=== PATIENT | female | born 1970 | race Caucasian/White ===

== ENCOUNTER 2021-12-28 19:04 | Inpatient (IN) | payer BC, OTHER ==
[~2021-12-28] VITALS: Ht 157.5 cm; Wt 70.3 kg
[2021-12-28 12:00] VITALS: BP_SYST 124
[2021-12-28 19:21] VITALS: BP_SYST 129
[2021-12-28 22:02] LABS: MEAN CORPUSCULAR VOLUME 99 fL (79.0-98.0)
[2021-12-28 22:11] LABS: POTASSIUM 4.8 mmol/L (3.5-5.1)
[2021-12-28] MEDS ORDERED: HALOPERIDOL LACTATE 5 MG/ML VIAL IM ONE (22:15)
[2021-12-28] MEDS ORDERED: DIPHENHYDRAMINE INJ 50 MG/ML VIAL IM ONE (22:15)
[2021-12-28] MEDS ORDERED: LORazepam 2 MG/ML VIAL IM ONE (22:15)
[2021-12-28 22:48] LABS: HEMATOCRIT 47.8 % (36-48); MEAN CORPUSCULAR HEMOGLOBIN 31 pg (27-31); MEAN CORPUSCULAR HGB CONC 31 % (32-36); PLATELET COUNT (AUTO) 78 K/uL (130-430); RED BLOOD CELL COUNT(AUTO) 4.85 MIL/uL (4.2-6.2); RED CELL DISTRIBUTION WIDTH 14.1 % (9.0-15.0); WHITE BLOOD COUNT (AUTO) 18.2 K/uL (4.8-10.8)
[2021-12-28 22:56] LABS: BILIRUBIN,URINE NEGATIVE (NEGATIVE); BLOOD, URINE NEGATIVE (NEGATIVE); CLARITY/URINE CLEAR (CLEAR); COLOR,URINE YELLOW (YELLOW); GLUCOSE,URINE NEGATIVE (NEGATIVE); KETONES,URINE TRACE (NEGATIVE); LEUKOCYTE ESTERASE ,URINE NEGATIVE (NEGATIVE); NITRITE, URINE NEGATIVE (NEGATIVE); PROTEIN URINE 2+ (NEGATIVE); UROBILINOGEN,URINE 0.2 (0.2-1.0)
[2021-12-28] MEDS ORDERED: cefTRIAXone 1 GM IVPB PREMIX 50 ML IV ONE (23:00)
[2021-12-28] MEDS ORDERED: NACL 0.9% 2,000 ML IV ONE (23:00)
[2021-12-28 23:12] LABS: BARBITURATE, URINE NEGATIVE (NEG <=200); BENZODIAZEPINE, URINE NEGATIVE (NEG <=150); CANNABINOID, URINE POSITIVE (NEG <=50); COCAINE, URINE NEGATIVE (NEG <=150); METHAMPHETAMINES SCREEN,URINE NEGATIVE (NEG <=500); OPIATE, URINE NEGATIVE (NEG <=100); PHENCYCLIDINE SCREEN,URINE NEGATIVE (NEG <=25); UR TRICYCLIC ANTIDEPRESSANTS NEGATIVE (NEG <=300); URINE AMPHETAMINE NEGATIVE (NEG <=500); URINE METHADONE NEGATIVE (NEG <=200); URINE OXYCODONE SCREEN NEGATIVE (NEG <=100); URINE PROPOXYPHENE SCREEN NEGATIVE (NEG <=300)
[2021-12-28 23:21] LABS: BACTERIA,URINE MANY /HPF (None Seen); FINE GRANULAR CASTS,URINE 0-10 /LPF (None Seen); RBC,URINE 0-3 /HPF (0-3); URINE AMORPHOUS URATE 2+ /HPF (None Seen); WBC,URINE 0-3 /HPF (0-3)
[2021-12-29] VITALS (21 sets, daily range): BP systolic 72–142
[2021-12-29 00:06] LABS: ALBUMIN 4.4 g/dL (3.4-4.8); CALCIUM 9.1 mg/dL (8.4-11.0); CREATININE 2.27 mg/dL (0.55-1.30)
[2021-12-29] MEDS ORDERED: DEXTROSE 50% JECT 50 ML DISP.SYRIN IVP ONE ×3 (00:15→01:30)
[2021-12-29] MEDS ORDERED: DEXTROSE 50% JECT 50 ML DISP.SYRIN ONE ×2 (00:16→01:32)
[2021-12-29] MEDS ORDERED: ETOMIDATE 20 MG/ 10 ML VIAL (AMIDATE) IVP ONE (00:30)
[2021-12-29] MEDS ORDERED: SUCCINYLCHOLINE CHLORIDE 20 MG/ML(QUELICIN) IVP ONE (00:30)
[2021-12-29 00:55] LABS: ACETAMINOPHEN 531 ug/mL (1-30)
[2021-12-29 01:04] LABS: ACETONE, SERUM NEGATIVE (NEGATIVE)
[2021-12-29] MEDS ORDERED: PROPOFOL DRIP 100 ML IV ONE (01:15)
[2021-12-29] MEDS ORDERED: D5W IV ONE ×6 (01:15→15:45)
[2021-12-29] MEDS ORDERED: ACETYLCYSTEINE IV ONE ×6 (01:15→15:45)
[2021-12-29] MEDS ORDERED: D10W 1,000 ML IV SCH (02:00)
[2021-12-29] MEDS ORDERED: SODIUM BICARBONATE 8.4% JECT 50 MEQ/50 ML SYRINGE IVP ONE ×7 (02:00→12:45)
[2021-12-29 02:42] LABS: BAND % (MANUAL) 2 % (0-6); BASOPHILS % (MANUAL) 0 % (0-2); EOSINOPHILS % (MANUAL) 0 % (0-7); LYMPHOCYTES % (MANUAL) 27 % (20-46); METAMYELOCYTES % 2 % (0-0); MONOCYTES % (MANUAL) 4 % (0-11)
[2021-12-29] MEDS ORDERED: ACETYLCYSTEINE IV 6000 MG/30 ML VIAL IV ONE ×4 (02:42→21:46)
[2021-12-29] MEDS ORDERED: SODIUM BICARBONATE 8.4% JECT 150 MEQ in D5W 1,000 ML IVP SCH (02:45)
[2021-12-29] MEDS ORDERED: SODIUM BICARBONATE 8.4% JECT 150 MEQ in D5W 1,000 ML IVP ONE (02:45)
[2021-12-29] MEDS ORDERED: SODIUM BICARBONATE 8.4% JECT 50 MEQ/50 ML SYRINGE ONE ×5 (02:52→15:23)
[2021-12-29 04:03] LABS: ANION GAP 38 (5-15); CHLORIDE 104 mmol/L (98-107); CREATININE 2.03 mg/dL (0.55-1.30); POTASSIUM 4.3 mmol/L (3.5-5.1); SODIUM SERUM 147 mmol/L (136-145); UREA NITROGEN, BLOOD 15 mg/dL (8-21)
[2021-12-29 04:09] LABS: ALANINE AMINOTRANSFERASE 2161 U/L (12-78); ALBUMIN 2.4 g/dL (3.4-4.8); TOTAL BILIRUBIN 1.5 mg/dL (0.0-1.0)
[2021-12-29 04:27] LABS: GFR AFRICAN AMERICAN 33 mL/min (>90)
[2021-12-29 04:28] LABS: ASPARTATE AMINOTRANSFERASE 4505 U/L (10-37)
[2021-12-29 04:45] LABS: GLUCOSE 673 mg/dL (70-99)
[2021-12-29 04:46] LABS: CALCIUM 6.4 mg/dL (8.4-11.0)
[2021-12-29] MEDS ORDERED: INSULIN REGULAR, HUMAN 10 UNITS/0.1 ML INJ IVP ONE (06:30)
[2021-12-29] MEDS ORDERED: NACL 0.9% 1,000 ML IV ONE (07:45)
[2021-12-29] MEDS ORDERED: NALOXONE HCL 2 MG/2 ML SYR IVP ONE (07:45)
[2021-12-29] MEDS ORDERED: PIPERACILLIN/TAZO 3.375 GM in NS 50 ML IV ONE (07:45)
[2021-12-29] MEDS ORDERED: LINEZOLID 300 ML IV ONE (07:45)
[2021-12-29] MEDS ORDERED: ALBUMIN HUMAN 5% 250 ML IV ONE (07:45)
[2021-12-29 07:51] LABS: BASOPHILS % (AUTO) 0.1 % (0.0-2.0); HEMATOCRIT 30.2 % (36-48); HEMOGLOBIN 9.8 g/dL (12.0-16.0); LYMPHOCYTES # (AUTO) 1.6 K/uL (1.0-5.5); LYMPHOCYTES % (AUTO) 19.5 % (20.5-51.5); MEAN CORPUSCULAR HEMOGLOBIN 31 pg (27-31); MEAN CORPUSCULAR HGB CONC 33 % (32-36); MEAN CORPUSCULAR VOLUME 96 fL (79.0-98.0); MONOCYTES # (AUTO) 0.1 K/uL (0.0-1.0); MONOCYTES % (AUTO) 1.1 % (1.7-9.3); NEUTROPHILS # (AUTO) 6.3 K/uL (1.8-7.7); NEUTROPHILS % (AUTO) 79.3 % (40.0-70.0); RED BLOOD CELL COUNT(AUTO) 3.14 MIL/uL (4.2-6.2); RED CELL DISTRIBUTION WIDTH 13.3 % (9.0-15.0)
[2021-12-29] MEDS ORDERED: LORazepam 2 MG/ML VIAL IVP ONE (08:00)
[2021-12-29 08:03] LABS: PLATELET COUNT (AUTO) 27 K/uL (130-430)
[2021-12-29 08:04] LABS: PROTHROMBIN TIME 51.3 SECS (9.5-12.5)
[2021-12-29 08:05] LABS: INR 5.5 (0.8-1.2)
[2021-12-29] MEDS ORDERED: PIPERACILLIN/TAZOBACTAM 3.375 GM/VIAL (ZOSYN) IV ONE (08:18)
[2021-12-29] MEDS ORDERED: PANTOPRAZOLE SODIUM 80 MG in NS 100 ML IVP ONE (08:30)
[2021-12-29] MEDS ORDERED: PANTOPRAZOLE SODIUM 40 MG in NS 50 ML IV SCH ×2 (08:30→09:00)
[2021-12-29] MEDS ORDERED: OCTREOTIDE ACETATE 500 MCG in NS 247.5 ML IV ONE (08:30)
[2021-12-29] MEDS ORDERED: NS IV PRN (08:30)
[2021-12-29] MEDS ORDERED: LORAZEPAM IV PRN (08:30)
[2021-12-29] MEDS ORDERED: PANTOPRAZOLE SODIUM 40 MG/VIAL (PROTONIX) ONE (08:50)
[2021-12-29] MEDS ORDERED: PHYTONADIONE 10 MG in NS 50 ML IV ONE ×2 (09:15→11:45)
[2021-12-29] MEDS ORDERED: PHYTONADIONE 10 MG/ML AMP ONE (09:39)
[2021-12-29] MEDS ORDERED: ATROPINE SULFATE 1 MG/10 ML SYRINGE IVP ONE ×2 (10:00)
[2021-12-29] MEDS ORDERED: D5/0.45 NS 1,000 ML IV ONE (10:00)
[2021-12-29 10:04] LABS: POTASSIUM 2.5 mmol/L (3.5-5.1)
[2021-12-29 10:06] LABS: ALBUMIN 2.4 g/dL (3.4-4.8); CALCIUM 6.2 mg/dL (8.4-11.0); CREATININE 2.74 mg/dL (0.55-1.30)
[2021-12-29] MEDS ORDERED: CALCIUM GLUCONATE 1 GM in NS 100 ML IV ONE (10:15)
[2021-12-29] MEDS ORDERED: FOLIC ACID 1 MG, THIAMINE HCL 100 MG, MAGNESIUM SULFATE 1 GM, MVI 10 ML in NACL 0.9% 1,... IV SCH (10:15)
[2021-12-29] MEDS: SODIUM BICARBONATE 8.4% JECT 150 MEQ in D5W 1,000 ML IVP SCH ×3 (10:17→18:28)
[2021-12-29] MEDS ORDERED: KCL 40 mEq in 100 mL (PREMIX) 100 ML IV ONE (10:30)
[2021-12-29] MEDS: NOREPINEPHRINE BITARTRATE 4 MG in NS 246 ML IV PRN ×2 (10:36→17:33)
[2021-12-29] MEDS ORDERED: INSULIN REGULAR, HUMAN 100 UNITS/ML, 10 ML VIAL IVP ONE ×2 (10:45→22:30)
[2021-12-29] MEDS ORDERED: PROPOFOL DRIP 100 ML IV PRN (11:00)
[2021-12-29] MEDS ORDERED: INSULIN REGULAR, HUMAN 100 UNITS in NS 99 ML IV PRN ×4 (11:00→12:30)
[2021-12-29 11:27] LABS: INR 6.1 (0.8-1.2); PROTHROMBIN TIME 56.9 SECS (9.5-12.5)
[2021-12-29] MEDS ORDERED: KCL 20 mEq in D5NS 1000 mL 1,000 ML IV SCH (11:30)
[2021-12-29] MEDS ORDERED: THIAMINE HCL 100 MG, MAGNESIUM SULFATE 1 GM in NS 100 ML IV ONE (11:45)
[2021-12-29] MEDS ORDERED: POTASSIUM CHLORIDE 40 MEQ in D5W 250 ML IV ONE (11:45)
[2021-12-29] MEDS ORDERED: FOLIC ACID 1 MG, MVI 10 ML in NACL 0.9% 1,000 ML IV ONE (11:45)
[2021-12-29] MEDS ORDERED: KCL 20 mEq in NS 1000 mL 1,000 ML IV SCH (12:30)
[2021-12-29] MEDS ORDERED: DEXTROSE 50% JECT 50 ML (1 AMP) IVP PRN (13:00)
[2021-12-29] MEDS ORDERED: DEXTROSE 50% JECT 25 ML (1/2 AMP) IVP PRN (13:00)
[2021-12-29] MEDS: PANTOPRAZOLE SODIUM 40 MG in NS 50 ML IV SCH ×3 (13:40→23:59)
[2021-12-29 14:19] LABS: BASOPHILS % (AUTO) 0.3 % (0.0-2.0); HEMATOCRIT 36.3 % (36-48); LYMPHOCYTES # (AUTO) 1.7 K/uL (1.0-5.5); LYMPHOCYTES % (AUTO) 16.4 % (20.5-51.5); MEAN CORPUSCULAR HEMOGLOBIN 31 pg (27-31); MEAN CORPUSCULAR HGB CONC 33 % (32-36); MEAN CORPUSCULAR VOLUME 93 fL (79.0-98.0); MONOCYTES # (AUTO) 0.1 K/uL (0.0-1.0); MONOCYTES % (AUTO) 0.7 % (1.7-9.3); NEUTROPHILS # (AUTO) 8.5 K/uL (1.8-7.7); NEUTROPHILS % (AUTO) 82.6 % (40.0-70.0); RED BLOOD CELL COUNT(AUTO) 3.91 MIL/uL (4.2-6.2); RED CELL DISTRIBUTION WIDTH 13.5 % (9.0-15.0); WHITE BLOOD COUNT (AUTO) 10.3 K/uL (4.8-10.8)
[2021-12-29 14:22] LABS: PLATELET COUNT (AUTO) 28 K/uL (130-430)
[2021-12-29 14:32] LABS: CREATININE 2.65 mg/dL (0.55-1.30)
[2021-12-29 14:34] LABS: ALBUMIN 2.8 g/dL (3.4-4.8); TOTAL BILIRUBIN 2.7 mg/dL (0.0-1.0)
[2021-12-29 14:59] LABS: CALCIUM 6.7 mg/dL (8.4-11.0); POTASSIUM 2.3 mmol/L (3.5-5.1)
[2021-12-29] MEDS ORDERED: KCL 20 mEq in 100 mL (PREMIX) 100 ML IV ONE ×4 (16:30→21:45)
[2021-12-29 17:23] LABS: PROTHROMBIN TIME 61.4 SECS (9.5-12.5)
[2021-12-29 17:24] LABS: INR 6.3 (0.8-1.2)
[2021-12-29 19:20] LABS: CREATININE 2.63 mg/dL (0.55-1.30)
[2021-12-29 19:29] LABS: POTASSIUM 2.6 mmol/L (3.5-5.1)
[2021-12-29 19:30] LABS: CALCIUM 6.3 mg/dL (8.4-11.0)
[2021-12-29] MEDS ORDERED: CALCIUM GLUCONATE 1 GM/10 ML VIAL ONE (19:43)
[2021-12-29] MEDS ORDERED: CALCIUM CHLORIDE 1 GM in NS 100 ML IV ONE (19:43)
[2021-12-29] MEDS ORDERED: CALCIUM GLUCONATE 1 GM/10 ML VIAL IVP ONE (20:15)
[2021-12-29 21:03] LABS: BASOPHILS % (AUTO) 0.3 % (0.0-2.0); EOSINOPHILS % (AUTO) 0.4 % (0.0-4.0); HEMATOCRIT 27.1 % (36-48); HEMOGLOBIN 9.4 g/dL (12.0-16.0); LYMPHOCYTES # (AUTO) 1.1 K/uL (1.0-5.5); LYMPHOCYTES % (AUTO) 26.6 % (20.5-51.5); MEAN CORPUSCULAR HEMOGLOBIN 31 pg (27-31); MEAN CORPUSCULAR HGB CONC 35 % (32-36); MEAN CORPUSCULAR VOLUME 89 fL (79.0-98.0); MONOCYTES % (AUTO) 0.2 % (1.7-9.3); NEUTROPHILS % (AUTO) 72.5 % (40.0-70.0); RED BLOOD CELL COUNT(AUTO) 3.04 MIL/uL (4.2-6.2); RED CELL DISTRIBUTION WIDTH 12.9 % (9.0-15.0); WHITE BLOOD COUNT (AUTO) 4.2 K/uL (4.8-10.8)
[2021-12-29 21:21] LABS: PLATELET COUNT (AUTO) 47 K/uL (130-430)
[2021-12-29 21:43] LABS: ALBUMIN 2.5 g/dL (3.4-4.8); CREATININE 2.57 mg/dL (0.55-1.30); PHOSPHORUS 1.2 mg/dL (2.7-4.5)
[2021-12-29] MEDS ORDERED: KCL 20 mEq in 100 mL (PREMIX) 100 ML IV PRN (21:45)
[2021-12-29 23:12] LABS: INR 3.2 (0.8-1.2)
[2021-12-29 23:17] LABS: CALCIUM 6.4 mg/dL (8.4-11.0); POTASSIUM 2.6 mmol/L (3.5-5.1)
[2021-12-29 23:22] LABS: PROTHROMBIN TIME 30.8 SECS (9.5-12.5)
[2021-12-30] VITALS (43 sets, daily range): BP systolic 81–163
[2021-12-30 00:23] LABS: CKMB RELATIVE INDEX 1.5 (0.0-2.9)
[2021-12-30] MEDS ORDERED: ACETYLCYSTEINE IV ONE ×2 (01:30→03:30)
[2021-12-30] MEDS ORDERED: DEXTROSE IV ONE ×2 (01:30→03:30)
[2021-12-30 02:07] LABS: WHITE BLOOD COUNT (AUTO) 7.7 K/uL (4.8-10.8)
[2021-12-30] MEDS ORDERED: KCL 20 mEq in 0.45% NS 1000 mL 1,000 ML IV ONE (02:07)
[2021-12-30 02:11] LABS: BASOPHILS % (AUTO) 0.1 % (0.0-2.0); EOSINOPHILS % (AUTO) 0.1 % (0.0-4.0); HEMATOCRIT 27.7 % (36-48); LYMPHOCYTES # (AUTO) 0.7 K/uL (1.0-5.5); LYMPHOCYTES % (AUTO) 8.6 % (20.5-51.5); MEAN CORPUSCULAR HEMOGLOBIN 32 pg (27-31); MEAN CORPUSCULAR HGB CONC 36 % (32-36); MEAN CORPUSCULAR VOLUME 87 fL (79.0-98.0); MONOCYTES % (AUTO) 0.3 % (1.7-9.3); NEUTROPHILS % (AUTO) 90.9 % (40.0-70.0); RED BLOOD CELL COUNT(AUTO) 3.17 MIL/uL (4.2-6.2)
[2021-12-30 02:49] LABS: TOTAL BILIRUBIN 3.3 mg/dL (0.0-1.0)
[2021-12-30 03:33] LABS: CREATININE 2.69 mg/dL (0.55-1.30)
[2021-12-30 03:34] LABS: ALBUMIN 2.4 g/dL (3.4-4.8)
[2021-12-30 03:37] LABS: CALCIUM 5.8 mg/dL (8.4-11.0); POTASSIUM 2.2 mmol/L (3.5-5.1)
[2021-12-30 03:38] LABS: PLATELET COUNT (AUTO) 41 K/uL (130-430)
[2021-12-30 03:40] LABS: ACETAMINOPHEN 245 ug/mL (1-30)
[2021-12-30 03:59] LABS: INR 3.8 (0.8-1.2); PROTHROMBIN TIME 37.7 SECS (9.5-12.5)
[2021-12-30] MEDS ORDERED: KCL 40 mEq in 100 mL (PREMIX) 100 ML IV ONE (04:15)
[2021-12-30] MEDS ORDERED: SODIUM BICARBONATE 8.4% JECT 50 MEQ/50 ML SYRINGE IVP ONE (04:15)
[2021-12-30] MEDS ORDERED: CALCIUM GLUCONATE 1 GM in NS 100 ML IV ONE (04:15)
[2021-12-30] MEDS ORDERED: NOREPINEPHRINE 4 MG/4 ML VIAL IV ONE ×4 (06:02→14:55)
[2021-12-30] MEDS: KCL 20 mEq in 0.45% NS 1000 mL 1,000 ML IV SCH ×3 (06:14→06:30)
[2021-12-30] MEDS: PANTOPRAZOLE SODIUM 40 MG in NS 50 ML IV SCH ×3 (06:19→11:20)
[2021-12-30] MEDS: SODIUM BICARBONATE 8.4% JECT 150 MEQ in D5W 1,000 ML IVP SCH (06:23)
[2021-12-30 06:34] LABS: ALBUMIN 2.4 g/dL (3.4-4.8); CREATININE 2.6 mg/dL (0.55-1.30); TOTAL BILIRUBIN 3.7 mg/dL (0.0-1.0)
[2021-12-30] MEDS ORDERED: fentaNYL CITRATE/PF 100 MCG/2 ML AMP ONE (06:39)
[2021-12-30] MEDS ORDERED: MIDAZOLAM HCL 5 MG/5 ML VIAL ONE (06:39)
[2021-12-30] MEDS ORDERED: INSULIN LISPRO SLIDING SCALE 100 UNITS/ML VIAL (humaLOG) SUBCUT PRN (07:00)
[2021-12-30 07:36] LABS: POTASSIUM 2.5 mmol/L (3.5-5.1)
[2021-12-30 07:55] LABS: BASOPHILS % (AUTO) 0.2 % (0.0-2.0); EOSINOPHILS % (AUTO) 0.2 % (0.0-4.0); HEMATOCRIT 36.7 % (36-48); HEMOGLOBIN 12.9 g/dL (12.0-16.0); LYMPHOCYTES # (AUTO) 0.9 K/uL (1.0-5.5); MEAN CORPUSCULAR HEMOGLOBIN 31 pg (27-31); MEAN CORPUSCULAR HGB CONC 35 % (32-36); MEAN CORPUSCULAR VOLUME 88 fL (79.0-98.0); MONOCYTES % (AUTO) 0.2 % (1.7-9.3); NEUTROPHILS # (AUTO) 9.3 K/uL (1.8-7.7); NEUTROPHILS % (AUTO) 90.4 % (40.0-70.0); RED BLOOD CELL COUNT(AUTO) 4.17 MIL/uL (4.2-6.2); WHITE BLOOD COUNT (AUTO) 10.3 K/uL (4.8-10.8)
[2021-12-30 08:16] LABS: INR 4.6 (0.8-1.2); PROTHROMBIN TIME 43.3 SECS (9.5-12.5)
[2021-12-30 08:32] LABS: CALCIUM 5.8 mg/dL (8.4-11.0)
[2021-12-30] MEDS ORDERED: COMMUNICATION ORDER XX ONE (08:45)
[2021-12-30] MEDS ORDERED: 0.45% NACL 1,000 ML IV SCH (08:45)
[2021-12-30] MEDS ORDERED: POTASSIUM CHLORIDE 20 mEq in 100 mL (PREMIX) 100 ML x 2 doses IV SCH (09:00)
[2021-12-30] MEDS ORDERED: INSULIN GLARGINE 100 UNITS/ML 10 ML VIAL SUBCUT SCH (09:00)
[2021-12-30 09:09] LABS: PLATELET COUNT (AUTO) 43 K/uL (130-430)
[2021-12-30] MEDS ORDERED: KCL 20 mEq in 100 mL (PREMIX) 100 ML IV ONE (09:30)
[2021-12-30] MEDS ORDERED: CALCIUM GLUCONATE 2 GM in NS 100 ML IV ONE (09:30)
[2021-12-30] MEDS ORDERED: POTASSIUM CHLORIDE 40 MEQ in NS 250 ML IV ONE (10:00)
[2021-12-30 10:28] LABS: BASOPHILS % (AUTO) 0.1 % (0.0-2.0); EOSINOPHILS % (AUTO) 0.2 % (0.0-4.0); HEMOGLOBIN 12.7 g/dL (12.0-16.0); LYMPHOCYTES # (AUTO) 0.7 K/uL (1.0-5.5); LYMPHOCYTES % (AUTO) 7.8 % (20.5-51.5); MEAN CORPUSCULAR HEMOGLOBIN 31 pg (27-31); MEAN CORPUSCULAR HGB CONC 35 % (32-36); MEAN CORPUSCULAR VOLUME 88 fL (79.0-98.0); MONOCYTES % (AUTO) 0.1 % (1.7-9.3); NEUTROPHILS # (AUTO) 8.7 K/uL (1.8-7.7); NEUTROPHILS % (AUTO) 91.8 % (40.0-70.0); RED BLOOD CELL COUNT(AUTO) 4.08 MIL/uL (4.2-6.2); WHITE BLOOD COUNT (AUTO) 9.5 K/uL (4.8-10.8)
[2021-12-30 10:39] LABS: PROTHROMBIN TIME 52.3 SECS (9.5-12.5)
[2021-12-30 10:40] LABS: INR 5.6 (0.8-1.2); PLATELET COUNT (AUTO) 38 K/uL (130-430)
[2021-12-30] MEDS ORDERED: PHYTONADIONE 10 MG in NS 50 ML IV ONE (10:45)
[2021-12-30 10:56] LABS: ALBUMIN 2.2 g/dL (3.4-4.8); CREATININE 2.59 mg/dL (0.55-1.30); POTASSIUM 3.5 mmol/L (3.5-5.1); TOTAL BILIRUBIN 3.6 mg/dL (0.0-1.0)
[2021-12-30 12:21] LABS: CALCIUM 5.3 mg/dL (8.4-11.0)
[2021-12-30] MEDS ORDERED: DEXTROSE 50% JECT 50 ML DISP.SYRIN ONE (13:21)
[2021-12-30] MEDS ORDERED: OCTREOTIDE ACETATE 500 MCG in NS 97.5 ML IV SCH (13:30)
[2021-12-30] MEDS ORDERED: DEXTROSE 50% JECT 50 ML DISP.SYRIN IVP ONE (14:45)
== END 2021-12-30 17:10 | disposition short-term general hospital (02) | DRG 871 ==
LOC: SED 19:04 → SIC 12-29 08:42
PROVIDERS: ADMIT Family Medicine; ATTEND Family Medicine
PROC: 02HV33Z Insertion of Infusion Device into Superior Vena Cava, Percutaneous Approach (ICD-10-PCS; principal; 2021-12-29)
PROC: 5A1945Z Respiratory Ventilation, 24-96 Consecutive Hours (ICD-10-PCS; 2021-12-29)
PROC: 0BH17EZ Insertion of Endotracheal Airway into Trachea, Via Natural or Artificial Opening (ICD-10-PCS; 2021-12-29)
PROC: B548ZZA Ultrasonography of Superior Vena Cava, Guidance (ICD-10-PCS; 2021-12-29)
PROC: 30233K1 Transfusion of Nonautologous Frozen Plasma into Peripheral Vein, Percutaneous Approach (ICD-10-PCS; 2021-12-29)
PROC: 30233N1 Transfusion of Nonautologous Red Blood Cells into Peripheral Vein, Percutaneous Approach (ICD-10-PCS; 2021-12-29)
PROC: 30233R1 Transfusion of Nonautologous Platelets into Peripheral Vein, Percutaneous Approach (ICD-10-PCS; 2021-12-29)
DX: A41.9 Sepsis, unspecified organism (principal); E11.10 Type 2 diabetes mellitus with ketoacidosis without coma; J96.01 Acute respiratory failure with hypoxia; G92.8 Other toxic encephalopathy; R65.21 Severe sepsis with septic shock; N17.0 Acute kidney failure with tubular necrosis; K72.00 Acute and subacute hepatic failure without coma; R57.8 Other shock; I21.4 Non-ST elevation (NSTEMI) myocardial infarction; D68.9 Coagulation defect, unspecified; K92.2 Gastrointestinal hemorrhage, unspecified; D62 Acute posthemorrhagic anemia; F11.20 Opioid dependence, uncomplicated; T39.1X1A Poisoning by 4-Aminophenol derivatives, accidental (unintentional), initial encounter; Z20.822 Contact with and (suspected) exposure to COVID-19; D69.6 Thrombocytopenia, unspecified; G89.4 Chronic pain syndrome; E83.51 Hypocalcemia; E87.6 Hypokalemia; Z86.73 Personal history of transient ischemic attack (TIA), and cerebral infarction without residual deficits; Y92.89 Other specified places as the place of occurrence of the external cause; D53.1 Other megaloblastic anemias, not elsewhere classified
CPT/HCPCS: 36415; 36430; 36600; 70450-TC; 71045; 76376; 80048; 80053; 80307; 81000; 82009; 82140; 82306; 82550; 82553; 82803-TC; 82962; 83605; 83615; 83735; 84100; 84484; 85007; 85025; 85027; 85610-TC; 85730-TC; 86886; 86900; 86901; 86920; 87040; 87070-TC; 87081; 87086; 87205-TC; 93005; 94002; 94003; 94640; 96361; 96365; 96372; 96375; 99285; 99292; C9113; G0480; G0481; G0482; J0132; J0461; J0610; J0696; J1200; J1630; J1815; J2020; J2060; J2250; J2310; J2354; J2543; J2704; J3010; J3411; J3430; J3475; J3480; J3490; J7030; J7050; J7060; P9021; P9034; P9041; P9059; U0003